=== PATIENT | female | born 1985 | race Caucasian/White ===

== ENCOUNTER 2021-02-06 00:39 | Emergency (ER) | payer MEDICAID ==
[~2021-02-06] VITALS: Ht 165.1 cm; Wt 70.0 kg
[2021-02-06] MEDS ORDERED: NALOXONE HCL 0.4 MG/ML 1ML VIAL IM ONE (01:30)
[2021-02-06] MEDS ORDERED: NALO4SPR BOTHNSTRLS (02:26)
[2021-02-06 03:20] VITALS: BP 121/74
== END 2021-02-06 03:20 | disposition home or self-care (01) ==
LOC: ER 00:39
DX: R06.03 Acute respiratory distress (principal); T65.91XA Toxic effect of unspecified substance, accidental (unintentional), initial encounter; Y92.9 Unspecified place or not applicable
CPT/HCPCS: 93005; 96372; 99283; J2310